=== PATIENT | female | born 1965 | race Caucasian/White ===

== ENCOUNTER 2023-01-10 14:52 | Outpatient (CLI) | payer OTHER, SELFPAY | END 2023-01-10 14:53 | disposition home or self-care (01) | PROVIDERS: PCP Family Medicine; Visit Provider Family Medicine | DX: R53.83 Other fatigue (principal); E55.9 Vitamin D deficiency, unspecified; E66.9 Obesity, unspecified; E78.5 Hyperlipidemia, unspecified | CPT/HCPCS: 80061; 82306; 84443 ==

== ENCOUNTER 2023-04-16 07:36 | Outpatient (CLI) | payer OTHER, SELFPAY | END 2023-04-16 07:37 | disposition home or self-care (01) | LOC: NFLDREF 04-17 11:13 | PROVIDERS: PCP Family Medicine; Referring Provider Family Medicine; Visit Provider Family Medicine | DX: Z00.00 Encounter for general adult medical examination without abnormal findings (principal); E55.9 Vitamin D deficiency, unspecified; E78.5 Hyperlipidemia, unspecified; R73.9 Hyperglycemia, unspecified; R53.83 Other fatigue; E66.9 Obesity, unspecified | CPT/HCPCS: 80053; 80061; 82306; 82607; 85025 ==

== ENCOUNTER 2023-04-16 07:38 | Outpatient (CLI) | payer OTHER, SELFPAY ==
--- NOTE | 2023-04-16 08:15 | CRLHL7_ITS ---
For Patients: As a result of the Cures Act, medical imaging exams and procedure reports are released immediately into your electronic medical record. You may view this report before your referring provider. If you have questions, please contact your health care provider. BILATERAL SCREENING MAMMOGRAM WITH COMPUTER-AIDED DETECTION AND TOMOSYNTHESIS TECHNIQUE: CC and MLO views were obtained. These mammographic images have been obtained using full-field digital technique. These mammographic images were interpreted with the benefit of computer-aided detection. Breast Tomosynthesis was used in this interpretation. COMPARISON FILM: 03/13/18, 03/12/17, 10/25/14. FINDINGS: There are scattered areas of fibroglandular density IMPRESSION: There is no radiographic evidence for malignancy. ASSESSMENT: BI-RADS Category 2: Benign RECOMMENDATION: Routine screening mammogram in 1 year. A lay language report of this examination will be provided to the patient. David Cagle M.D. Diagnostic Radiologist [email or web address] [email or web address]/[email or web address] / be/Dictated by: David Cagle MD @ 04/30/2023 8:51:00 AM (Electronically Signed)
== END 2023-04-16 07:39 | disposition home or self-care (01) ==
LOC: MAMMO 07:40
PROVIDERS: PCP Family Medicine; Visit Provider Family Medicine
DX: Z12.31 Encounter for screening mammogram for malignant neoplasm of breast (principal); Z00.00 Encounter for general adult medical examination without abnormal findings; E78.5 Hyperlipidemia, unspecified; E66.9 Obesity, unspecified; R53.83 Other fatigue; E55.9 Vitamin D deficiency, unspecified
CPT/HCPCS: 77063; 77067; 80061; 82306

== ENCOUNTER 2023-05-15 07:44 | Outpatient (CLI) | payer OTHER, SELFPAY ==
--- OUTSIDE RECORDS SUMMARY | 2023-05-15 07:47 | XMS_ITS | Clinical Summary ---
Author Name Unknown Organization [facility] [facility] Address [place], [place] [address] Care Team Providers Care Hose Operator Name Role Phone Pcp, No Primary Care Provider Unavailabl e Allergies No known active allergies Medications Medication Sig Dispensed Refills Start Date End Date Status metroNIDAZOLE (FLAGYL) 500 mg tablet Take by mouth 2 times daily. 0 02/04/2011 Active cefuroxime axetil (CEFTIN) 500 mg tablet Take 1 tablet by mouth 2 times daily. 20 tablet 0 02/04/2011 Active Active Problems No known active problems Immunizations Name Administration Dates Next Due Influenza, IIV3 (Age >=3 years) 01/25/2010 Social History Tobacco Use Types Packs/Day Years Used Date Smoking Tobacco: Never Assessed Sex and Gender Information Value Date Recorded Sex Assigned at Not on file Gender Identity Not on file Sexual Orientation Not on file Obstetrics History Last Filed Vital Signs Vital Sign Reading Time Taken Comments Blood Pressure 97/59 02/07/2011 11:37 AM CDT Pulse 68 02/07/2011 11:37 AM CDT Temperature - - Respiratory Rate - - Oxygen Saturation - - Inhaled Oxygen Concentration - - Weight 69.4 kg (153 lb) 02/07/2011 11:37 AM CDT Height - - Body Mass Index - - Plan of Treatment Health Maintenance Due Date Last Done Comments COVID-19 vaccine series (#1) 1966 Tdap 1977 Depression screening for age 12+ 1978 HIV for age 15-65 1981 BMI (ht and wt on same day) for age 18+ 1984 Hepatitis C screening for ag e 18-79 1984 Tetanus booster 1986 Colonoscopy through age 75 2011 Lipids for age 45-75 2011 Mammogram for age 45-75 2011 01/19/20 09, 05/16/2008 Zoster (shingles) series for age 50+ (1 of 2) 2016 Pap test for age 21-65 02/27/2021 8, 02/27/2018 Influenza for age 50-64 01/03/2023 01/25/2010 Pneumococcal series for age 6-64 Aged Out No longer eligible b ased on patient's age to complete this topic Care Teams Hose Operator Relationship Specialty Start Date End Date Pcp, No . PCP - General 02/04/11
--- NOTE | 2023-05-15 09:13 | W.ANESCHARGE ---
Anesthesia Charges Start Date/Time Anesthesia Start Date: 05/15/23 Anesthesia Start Time: 08:22 Stop Date/Time Anesthesia Stop Date: 05/15/23 Anesthesia Stop Time: 09:11
--- NOTE | 2023-05-15 09:21 | W.ANESCHARGE ---
Anesthesia Charges Start Date/Time Anesthesia Start Date: 05/15/23 Anesthesia Start Time: 08:22 Stop Date/Time Anesthesia Stop Date: 05/15/23 Anesthesia Stop Time: 09:11
== END 2023-05-15 07:45 | disposition home or self-care (01) ==
LOC: OP CLINIC 07:45
PROVIDERS: PCP Family Medicine; Visit Provider Surgery
DX: Z12.11 Encounter for screening for malignant neoplasm of colon (principal); K63.5 Polyp of colon; K57.30 Diverticulosis of large intestine without perforation or abscess without bleeding; Z86.010 Personal history of colon polyps
CPT/HCPCS: 00811; 45385; 88305; J2704

== ENCOUNTER 2023-10-10 16:05 | Outpatient (CLI) | payer OTHER, SELFPAY ==
--- OUTSIDE RECORDS SUMMARY | 2023-10-28 09:35 | XMS_ITS | Clinical Summary ---
Author Organization [facility] Address [place], [place] [address] Care Team Providers Care Dental Hygiene Professor Name Role Phone Pcp, No Primary Care [...] Health Maintenance Due Date Last Done Comments Tdap 1977 Depression screening for age 12+ [...] test for age 21-65 02/27/2021 8, 02/27/2018 COVID-19 vaccine series (2022- season) 2023 Influenza for age 50-64 01/04/2024 01/25/2010 Pneumococcal series for age 6-64 Aged Out No longer eligible b ased on patient's age to complete this topic Procedures Procedure Name Priority Date/Time Associated Diagnosis Comments EXPORT SALES ASSISTANT THIN PREP PAP SCREEN IMAGED Routine 02/27/2018 1:20 PM CDT SCAN-MAMMOGRAPHY REPORT 01/18/2009 12:00 AM CDT from Last 3 Months or Most Recently Relevant to Health Maintenance Results * EXPORT SALES ASSISTANT THIN PREP PAP SCREEN IMAGED (02/27/2018 1:20 PM CDT) Case Report Gynecologic Cytology Report ? Case: [id number] ? Authorizing Provider: ??Tahmina Lawton MD ??Collected: ? 02/27/2018 1320 ? First Screen: ?Aditi Randle ? Received: ?03/04/2018 1844 ? Specimen: ?EXPORT SALES ASSISTANT ThinPrep Vial Screening, Cervical/Vaginal ? 03/12/2018:19 AM [facility] INTERPRETATION/ RESULT NEGATIVE FOR INTRAEPITHELIAL LESION OR MALIGNANCY (NIL) (none) 03/12/2018 11:19 AM [facility] IMEN ADEQUACY Satisfactory for evaluation Endocervical cells cannot be evaluated due to severe atrophy 03/12/2018 11:19 AM [facility] HPV REQUEST HPV and PAP 03/12/2018 11:19 AM [facility] Automated Review Successful 03/12/2018 11:19 AM [facility] Comment:Specimen processed s uccessfully by automated acute care nurse device, EmulatePrep Imaging System, [employer] ANCILLARY TESTING EXPORT SALES ASSISTANT HPV Ordered, Please see separate report 03/12/2018 11:19 AM [facility] Note The pap test is a screening technique, not a diagnostic procedure. ??It is used primarily to screen for squamous cancers and precursor lesions. ??Published studies have shown that it is subject to both false negative and false positive results. ??The pap test should not be used as the sole means to diagnose or exclude pre-malignant and malignant lesions. Cytology is screened and interpreted at [facility] - [address], [place] [address] and [facility] - [address]; [place] [address] and [facility] - [address]; [place] [address] and [facility] [address]; [place] [address] 03/12/2018 11:19 AM [facility] Other (Cervical/Vagina l) 02/27/2018 1:20 PM CDT 03/04/2018 6:44 PM CDT Tahmina Lawton MD PATHOLOG[facility] [address] [place] [address], [place] * SCAN-MAMMOGRAPHY REPORT (01/18/2009 12:00 AM CDT) Anatomical Region Laterality Modality Other Narrative Procedure Note Scanner - 01/18/2009 12:00 AM CDT Scanner OTHER from Last 3 Months or Most Recently Relevant to Health Maintenance Care Teams Dental Hygiene Professor Relationship Specialty Start Date End Date Pcp, No . PCP - General 02/04/11
== END 2023-10-10 16:06 | disposition home or self-care (01) ==
LOC: NFLDREF 10-28 09:33
PROVIDERS: Visit Provider Nurse Practitioner Family
DX: M54.9 Dorsalgia, unspecified (principal); R50.9 Fever, unspecified
CPT/HCPCS: 87086

== ENCOUNTER 2023-12-05 08:46 | Outpatient (CLI) | payer OTHER, SELFPAY ==
--- OUTSIDE RECORDS SUMMARY | 2023-12-05 08:52 | XMS_ITS | Clinical Summary ---
Author Organization [facility] [facility] Address [place], [place] [address] Care Team Providers Care [employer] Truck Driver Name Role Phone Pcp, No Primary Care [...] Procedure Name Priority Date/Time Associated Diagnosis Comments CAMPUS RECRUITER THIN PREP PAP SCREEN IMAGED Routine 02/27/2018 1:20 PM CDT SCAN-MAMMOGRAPHY REPORT 01/18/2009 12:00 AM CDT from Last 3 Months or Most Recently Relevant to Health Maintenance Results * CAMPUS RECRUITER THIN PREP PAP SCREEN IMAGED (02/27/2018 1:20 PM CDT) Case Report Gynecologic Cytology Report ? Case: [id number] ? Authorizing Provider: ??Tahmina Lawton MD ??Collected: ? 02/27/2018 1320 ? First Screen: ?Aditi Randle ? Received: ?03/04/2018 1844 ? Specimen: ?CAMPUS RECRUITER ThinPrep Vial Screening, Cervical/Vaginal ? 03/12/2018:19 AM [facility] INTERPRETATION/ RESULT NEGATIVE FOR INTRAEPITHELIAL LESION OR MALIGNANCY (NIL) (none) 03/12/2018 11:19 AM [facility] IMEN ADEQUACY Satisfactory for evaluation Endocervical cells cannot be evaluated due to severe atrophy 03/12/2018 11:19 AM [facility] HPV REQUEST HPV and PAP 03/12/2018 11:19 AM [facility] Automated Review Successful 03/12/2018 11:19 AM [facility] Comment:Specimen processed s uccessfully by automated gasket former device, CIHIPrep Imaging System, [employer] ANCILLARY TESTING CAMPUS RECRUITER HPV Ordered, Please see separate report 03/12/2018 11:19 AM [facility] Note The pap test is [...] Cytology is screened and interpreted at [facility] - [address], [place] [address] and [facility] - [address]; [place] [address] and [facility] - [address]; [place] [address] and [facility] [address]; [place] [address] 03/12/2018 11:19 AM [facility] Other (Cervical/Vagina l) 02/27/2018 1:20 PM CDT 03/04/2018 6:44 PM CDT Tahmina Lawton MD [facility]OLOG[facility] [address] [place] [address], [place] * SCAN-MAMMOGRAPHY REPORT (01/18/2009 12:00 AM CDT) Anatomical Region Laterality Modality Other Narrative Procedure Note Scanner - 01/18/2009 12:00 AM CDT Scanner OTHER from Last 3 Months or Most Recently Relevant to Health Maintenance Care Teams [employer] Truck Driver Relationship Specialty Start Date End Date Pcp, No . PCP - General 02/04/11
== END 2023-12-05 08:47 | disposition home or self-care (01) ==
PROVIDERS: PCP Physician Assistant Medical; Visit Provider Obstetrics & Gynecology
DX: R53.83 Other fatigue (principal); Z79.890 Hormone replacement therapy
CPT/HCPCS: 80053; 84443

== ENCOUNTER 2024-06-07 07:34 | Outpatient (CLI) | payer OTHER, SELFPAY | END 2024-06-07 07:35 | disposition home or self-care (01) | LOC: NFLDREF 06-09 00:56 | PROVIDERS: PCP Physician Assistant Medical; Referring Provider Physician Assistant Medical; Visit Provider Physician Assistant Medical | DX: E78.5 Hyperlipidemia, unspecified (principal); E66.9 Obesity, unspecified; R63.5 Abnormal weight gain; E55.9 Vitamin D deficiency, unspecified; I10 Essential (primary) hypertension; R53.83 Other fatigue | CPT/HCPCS: 80053; 80061; 82306; 84443 ==

== ENCOUNTER 2024-10-11 07:57 | Outpatient (CLI) | payer OTHER, SELFPAY ==
--- NOTE | 2024-10-11 08:15 | CRLHL7_ITS ---
For Patients: As a result of the Century Cures Act, medical imaging exams and procedure reports are released immediately into your electronic medical record. You may view this report before your referring provider. If you have questions, please contact your health care provider. INDICATION: BILATERAL SCREENING MAMMOGRAM, ASYMPTOMATIC 59 Y/O FEMALE COMPARISON: 04/16/2023, 03/13/2018, 03/12/2017 TECHNIQUE: Digital mammogram in CC and MLO projections including computer-aided detection (CAD) and tomosynthesis. BREAST COMPOSITION: The breasts are almost entirely fatty. FINDINGS: No suspicious findings. ASSESSMENT: BI-RADS 2 Benign RECOMMENDATION: Annual screening mammogram. A lay language report of this examination will be provided to the patient. Dictated by: David Cagle MD @ 10/14/2024 10:16:17 (Electronically Signed)
== END 2024-10-11 07:58 | disposition home or self-care (01) ==
LOC: MAMMO 07:58
PROVIDERS: PCP Physician Assistant Medical; Visit Provider Physician Assistant Medical
DX: Z12.31 Encounter for screening mammogram for malignant neoplasm of breast (principal)
CPT/HCPCS: 77063; 77067